=== PATIENT | male | born 1990 | race Caucasian/White ===

== ENCOUNTER 2022-10-09 15:14 | Emergency (ER) | payer MEDICAID ==
[~2022-10-09] VITALS: Ht 185.4 cm; Wt 70.0 kg
[2022-10-10] MEDS ORDERED: SODIUM CHLORIDE 0.9% 1,000 ML IV NR (04:15)
[2022-10-10 04:18] LABS: BASOPHILS % 0.7 % (0.0-2.0); EOSINOPHILS % 2.5 % (0.0-5.0); HEMOGLOBIN. 15.9 g/dL (14.0-18.0); MEAN CORPUSCULAR HEMOGLOBIN 31.1 pg (28.0-32.0); MEAN CORPUSCULAR VOLUME 89.8 fL (80.0-94.0); MONOCYTES % 9.2 % (2.0-8.0); NEUTROPHILS % 46.6 % (40.0-76.0); PLATELET 227 x1000/uL (130-400); RED BLOOD CELL COUNT 5.12 mill/uL (4.7-6.1); RED CELL DISTRIBUTION WIDTH 12.2 % (11.6-14.6)
[2022-10-10 04:23] LABS: CHLORIDE 104 mEq/L (98-107)
[2022-10-10 04:48] LABS: HCG SCREEN NEGATIVE
[2022-10-10] MEDS ORDERED: FENTANYL CITRATE/PF 50MCG/ML 2ML VIAL IV ONE (05:30)
[2022-10-10 07:43] VITALS: BP 93/57
== END 2022-10-10 08:29 | disposition home or self-care (01) ==
LOC: ER 15:14 → CANBEDREQ 10-11 06:08
DX: I48.20 Chronic atrial fibrillation, unspecified (principal); J45.909 Unspecified asthma, uncomplicated; Z88.0 Allergy status to penicillin
CPT/HCPCS: 36415; 71045; 80053; 83880; 84443; 84484; 84703; 85025; 93005; 96374; 99285; J3010; Z7610